=== PATIENT | male | born 1975 | race Caucasian/White ===

== ENCOUNTER 2019-09-21 22:41 | Emergency (ER) | payer SELFPAY ==
[~2019-09-21] VITALS: Ht 170.2 cm; Wt 68.5 kg
[2019-09-22] MEDS ORDERED: HYDROCODONE/ACETAMINOPHEN 5/325MG TABLET PO ONE (01:00)
[2019-09-22 01:02] LABS: HEMATOCRIT. 43.9 % (42.0-52.0); HEMOGLOBIN. 15.6 g/dL (14.0-18.0); MEAN CORPUSCULAR HEMOGLOBIN 32.5 pg (28.0-32.0); MEAN CORPUSCULAR VOLUME 91.5 fL (80.0-94.0); MEAN PLATELET VOLUME 9.9 fl (7.4-10.4); PLATELET 208 x1000/uL (130-400); RED CELL DISTRIBUTION WIDTH 13.8 % (11.6-14.6)
[2019-09-22 01:07] LABS: CHLORIDE 108 mEq/L (98-107)
[2019-09-22 01:30] LABS: PLATELET ESTIMATE NORMAL
[2019-09-22] MEDS ORDERED: IOHEXOL-350 100 ML BOTTLE ONE ×2 (01:57→02:47)
[2019-09-22] MEDS ORDERED: HYDROCODONE/ACETAMINOPHEN 5/325MG TABLET PO NR ×2 (03:30→05:45)
[2019-09-22 06:24] VITALS: BP 118/64
== END 2019-09-22 06:27 | disposition home or self-care (01) ==
LOC: ER 22:41
DX: S82.291A Other fracture of shaft of right tibia, initial encounter for closed fracture (principal); W18.39XA Other fall on same level, initial encounter; Y93.89 Activity, other specified; Y92.89 Other specified places as the place of occurrence of the external cause; Y99.8 Other external cause status; T79.A0XA Compartment syndrome, unspecified, initial encounter; M25.061 Hemarthrosis, right knee
CPT/HCPCS: 29505; 36415; 70450; 73560; 73706; 80048; 85025; 99285; Q9967